=== PATIENT | male | born 1945 | race Caucasian/White ===

== ENCOUNTER 2016-11-20 12:41 | Emergency (ER) | payer MEDICARE, BC ==
[2016-11-20 13:42] LABS: Hematocrit 36.6 % (42.0-52.0); Hemoglobin 12.4 gm/dL (13.5-18.0); Mean Cell Volume 89.9 fl (78-100); Mean Corpuscular Hemoglobin 30.5 pg (27-31); Mean Corpuscular Hgb Conc 33.9 g/dl (32-36); Mean Platelet Volume 9.6 fl (6.0-9.5); Neutrophil # 9.8 K/mm3 (1.3-6.0); Neutrophil % 80.1 % (42-75.0); Platelet Count 480 K/mm3 (150-450); Red Blood Count 4.07 M/mm3 (4.7-6.0); White Blood Count 12.2 K/mm3 (4.0-10.5)
[2016-11-20 13:55] LABS: Albumin * 2.7 gm/dl (3.4-5.0); BUN/Creatinine Ratio 14.1 (9.0-21.6); Bilirubin, Total 0.8 mg/dL (0.0-1.1); Ca. Corrected For Albumin 9.9 mg/dL (8.4-10.2); Calcium * 9.2 mg/dL (7.9-10.9); Total Protein 7.6 gm/dL (6.2-8.2)
[2016-11-20 14:06] LABS: CRP 19.9 mg/dL (0.0-0.9)
--- OUTSIDE RECORDS SUMMARY | 2016-11-20 14:14 | XMS REPORT | Continuity of Care Document ---
:1945 Demographics Phone Unavailable Preferred Language Unknown Marital Status Unknown Temple Affiliation Unknown Race Unknown Ethnic Group Unknown Author Organization [facility] ([facility]) Address [place] [address] Phone [phone] Care Team Providers Name Role Phone Unavailable Primary Care Provider Unavailable Source Comments This disclosure is being made pursuant to the Care Everywhere program, applicable federal and state laws, and may not contain all informaitonavailable regarding this patient.[facility] ([facility]) Active Allergies and Adverse Reactions Not on File Current Medications Not on file Active Problems Not on file Social History Tobacco Use Types Packs/Day Years Used Date Never Assessed Plan of Care Health Maintenance Due Date Last Done Comments HCV Screening 1945 Hepatitis B Vaccine (1 of 3 - Primary Series) 1945 Tdap Vaccine 1958 Lipid Disorder Screening 1965 Td Vaccine 1965 Colonoscopy 02/11/1997 Prostate Cancer Screening 1997 Zoster Vaccine 2007 Pneumococcal Vaccine (1 of 2 - PCV13) 02/13/2012 Influenza Vaccine: Seasonal (#1) 02/02/2016 Results from Last 3 Months Not on file
--- NOTE | 2016-11-20 14:41 | ERNOTE ---
Medical Problem HPI - General Chief Complaint: General Assessment Time Seen by Provider: 11/20/16 14:06 Source: patient Exam Limitations: no limitations - Immun/Allergies/Home Medications Immunizations: IMMUNIZATION HX Immunizations Up to Date Yes History of Influenza Vaccine Yes Hx Pneumococcal Vaccination No Allergies/Adverse Reactions: Allergies No Known Allergies Allergy (Verified 11/20/16 13:08) Home Medications: HOME MEDICATIONS Amox Tr/Potassium Clavulanate [Augmentin 875-125 Tablet] 875 mg PO Q12H #20 tab 11/20/16 [Last Taken Unknown] HYDROcodone/ACETAMINOPHEN [Crescent 5-325] 1 tab PO Q4H PRN #30 tab 11/20/16 [Last Taken Unknown] - History of Present History Narrative: Patient has not been feeling well for about three weeks. Symptoms started with neck pain, pain then started to spread down his back and over his whole body. He saw a chiropractor multiple times without significant relieve, saw his PCP last week and was treated with pain medication and muscle relaxants. He has also had difficulty opening his mouth due to pain in his jaws bilateral(which is slightly better today). He has been chilling since yesterday, was not aware that he has a fever today. He has had swelling in his right foot for a few days too, not sure how long. He denies any injuries, though he has horses and get 'bumped around' some. Review of Systems - Review of Systems Constitutional: Present: chills, fatigue, malaise EYE: Absent: blurred vision, double vision ENT: Absent: nasal drainage, sore throat Respiratory: Absent: shortness of breath, cough Cardiology: Absent: chest pain Gastrointestinal/Abdominal: Absent: nausea, vomiting, diarrhea, abdominal pain Genitourinary: Present: no symptoms reported Musculoskeletal: Present: muscle pain - generalized aches, neck pain Skin: Absent: rash Neurological: Absent: headache, weakness, numbness - Patient's Past Medical History Patient History - Medical: No pertinent hx Patient History - Cardiac/Respiratory: No pertinent hx Patient History - Cancer: No Hx of Cancer Patient History - Surgical Procedures: Appendectomy, Back Surgery, T & A Patient History - Other: None - Social History Living Situations: home Psych History: No pertinent hx Smoking Status: Former smoker Do you dip or chew tobacco: Yes - Immunizations Immunizations Up to Date: Yes Hx Pneumococcal Vaccination: No History of Influenza Vaccine: Yes Physical Exam - Physical Exam General Appearance: Present: wd/wn, alert, no apparent distress Eye Exam: Normal inspection: bilateral, PERRL: bilateral Ears, Nose, Throat: Present: normal ENT inspection, normal pharynx Neck: Present: normal inspection, limited range of motion, other - diffusely tender. Absent: supple Respiratory: Present: no respiratory distress, normal breath sounds, no accessory muscle use, lungs clear Cardiovascular/Chest: Present: no murmur, tachycardia Gastrointestinal/Abdominal: Present: normal bowel sounds, nontender, nondistended, soft Back Exam: Present: normal inspection, no CVA tenderness, no vertebral tenderness Extremity Exam: Present: no edema - left leg, extremity edema - right leg +1, other - calf circumference right >left 1.5cm, right foot slightly increased temp , area of redness on medial side of foot, no obvious abscess, no skin breakdown , no lymphangitis. 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 - Vital Signs Patient's Vital Signs:: I have reviewed the patient's vital signs. Vital Signs: Vital Signs 11/20/16 13:02 Temperature 38.8 C H Pulse Rate 111 H Respiratory 16 Rate Blood Pressure 133/101 O2 Sat by Pulse 94 Oximetry - X-Ray X-Ray #1 X-Ray: chest - no acute changes Interpretation: Reviewed by me - CT/Ultrasound CT/Ultrasound Narrative: CT head: no acute findings CT c-spine: DJD venous doppler right leg: no DVT - Progress/Reassessment Chief Complaint: General Assessment Progress Note-Subjective: 11/20/16 16:15 discussed results with patient and family, temperature decreased without meds ( just uncovering patient) DJD in c-spine might explain pain but not temperature and elevated WBC, patient meets SIRS criteria with WBC, temp, and HR, but no organ dysfunction or obvious source of infection (except possible very early cellulitis of right foot which started later in the course of symptoms) recommended spinal tap, patient agreed, denies need for pain meds as he is comfortable as long as he is lying in bed 11/20/16 16:22 called Marc Murray ([employer]) will come in and do spinal tap 11/20/16 17:55 patient comfortable after lumbar puncture, awaiting results, will give dose of rocephin for possible cellulitis while awaiting results 11/20/16 18:59 discussed CSF results and plan with patient and family Departure - Departure Clinical Impression: Cellulitis of left foot Degenerative joint disease of cervical spine Qualifiers: Spinal osteoarthritis complication: unspecified spinal osteoarthritis Qualified Code(s): M47.812 - Spondylosis without myelopathy or radiculopathy, cervical region Disposition: Home self-care Condition: Good Instructions: Degenerative Disk Disease, Cellulitis, Adult, [id number] Additional Instructions: start the antibiotic tomorrow as you got IV antibiotics in the ER take the pain medications as needed call you doctor after the weekend for follow up Referrals: Christopher Bernal MD [Primary Care Provider] - Prescriptions: Amox Tr/Potassium Clavulanate [Augmentin 875-125 Tablet] 875 mg PO Q12H #20 tab HYDROcodone/ACETAMINOPHEN [Crescent 5-325] 1 tab PO Q4H PRN #30 tab PRN Reason: Pain
[2016-11-20 15:21] LABS: Urine Appearance Clear; Urine Color Dark Yellow; Urine Protein Negative (NEGATIVE); Urine Specific Gravity 1.015 SP.GR. (1.005-1.030); Urine Urobilinogen 4 EU/dl (NORMAL)
[2016-11-20 15:22] LABS: Urine Blood 10 /ul (NEGATIVE); Urine Nitrite Negative (NEGATIVE)
[2016-11-20 15:23] LABS: Urine Ketone 15 mg/dL (NEGATIVE)
[2016-11-20 15:27] LABS: Urine Bacteria None Seen; Urine RBC 0-5 /hpf (0-5); Urine WBC 0-5 /hpf (0-5)
[2016-11-20 15:29] LABS: Urine Bilirubin 3 mg/dl (NEGATIVE)
--- NOTE | 2016-11-20 16:58 | OR ---
Anesthesia Pre Procedure Eval Date of Service: 11/20/16 Pre Procedure Evaluation: Last Vital Signs Temp 37.8 C H 11/20/16 16:20 Pulse 102 H 11/20/16 16:41 Resp 17 11/20/16 16:41 BP 170/91 11/20/16 16:41 Pulse Ox 94 11/20/16 16:41 O2 Oxygen Delivery Method Room Air Anesthesia Pre Procedure Evaluation DATE: 11/05/2016 TIME: 1700 INDICATIONS: Headaches, neck rigidity, elevated white blood count PAST MEDICAL HISTORY: Mr. Cleary presents with chief complaints of headaches, also demonstrating neck rigidity and elevated white blood count above a level which explains his current condition EXAM: Heart S1-S2 regular; lungs clear bilaterally ASSESSMENT OF MEDICAL STATUS: Appropriate candidate for lumbar puncture PLANNED PROCEDURE: Lumbar puncture for diagnosis Home Medications: HOME MEDICATIONS NK [No Home Medication] 08/21/14 [Last Taken Unknown]
--- NOTE | 2016-11-20 17:58 | OR ---
Anesthesia Procedure Note - Anesthesia Procedure Note Date of Service: 11/20/16 Narrative: Vital Signs - Last Taken Temp 37.8 C H 11/20/16 16:20 Pulse 89 11/20/16 17:52 Resp 17 11/20/16 17:52 BP 167/85 11/20/16 17:52 Pulse Ox 94 11/20/16 17:52 O2 Oxygen Delivery Method Room Air 11/20/16 17:53 ANESTHESIA PROCEDURE NOTE Date of Procedure: 11/20/2016 Time of procedure: 1700. Performed by: CAYETANO Ley CRNA, MSN Directional Driller: Emergency room RN. Preprocedure diagnosis: Headache, nuchal rigidity, elevated white blood cell count. Post procedure diagnosis: Same. Procedure: Lumbar Puncture L4 5. Indications: Headaches nuchal rigidity elevated white blood count. Findings: See below. Details of the procedure: The patient was placed in left lateral position the back was prepped with Duraprep and draped in a sterile fashion. The L 34 interspace was localized with 1% lidocaine solution. Using a #22-gauge Wright needle the lumbar spinal canal was approached. may have a long history of back issues and the tissue is significantly firm which made the approach somewhat difficult. It appeared as if I had CSF return however there was no continuous free flow. After additional passes I questioned whether my approach was adequate and the patient was placed in a sitting position. In the sitting position, with maintenance of sterile field, the L45 level was localized and approached with a new 22-gauge Wright needle. CSF was contacted and clear CSF returned. For vials of CSF were harvested. Since an opening pressure was not obtained patient then was placed in a sitting position again with maintenance of sterility. A closing pressure of 14.2 cm of water pressure wasn't measured. The spinal needle was then removed and a Band-Aid was applied. EBL: Minimal. Fluids: N/A. Specimen:3vials of clear CSF2 milliliters each, 1 vial of CSF with 7 mL. Post procedure condition: The patient tolerated the procedure well. No complications were noted. Thank you for this consultation. Parveen Murray CRNA, ABATTOIR MANAGER, MSN
[2016-11-20 18:30] LABS: CSF Appearance Clear (CLEAR); CSF Color Colorless (COLORLESS)
[2016-11-20 18:31] LABS: CSF RBC 80 /uL (0-10)
[2016-11-20 18:32] LABS: CSF WBC 10 /uL (0-10)
[2016-11-20 19:16] VITALS: BP 171/85
== END 2016-11-20 19:13 | disposition home or self-care (01) ==
LOC: ER 12:41
PROC: 009U3ZX Drainage of Spinal Canal, Percutaneous Approach, Diagnostic (ICD-10-PCS; principal; 2016-11-20)
DX: M47.812 Spondylosis without myelopathy or radiculopathy, cervical region (principal); L03.116 Cellulitis of left lower limb; Z87.891 Personal history of nicotine dependence; R60.0 Localized edema